=== PATIENT | female | born 1965 | race Caucasian/White ===

== ENCOUNTER 2016-12-10 12:40 | Inpatient (IN) | payer MEDICARE, OTHER ==
[2016-12-10] MEDS ORDERED: 0.9 % SODIUM CHLORIDE 1,000 ML IV SCH (14:00)
[2016-12-10] MEDS ORDERED: 0.9 % SODIUM CHLORIDE 1,000 ML IV ONE ×2 (14:05→16:53)
[2016-12-10 14:16] LABS: BASOPHILS % 0.4 (0.0-1.5); EOSINOPHILS % 1.2 % (0.0-6.8); MEAN CORPUSCULAR HEMOGLOBIN 25.1 pg (28.0-34.0); MEAN CORPUSCULAR VOLUME 84.4 fl (80.0-100.0); MONOCYTES % 3.5 % (0.0-11.0)
[2016-12-10 14:21] LABS: eGFR (African) > 60; eGFR (Non-African) 42
[2016-12-10 14:34] LABS: APPEARANCE,URINE Cloudy (CLEAR); COLOR,URINE Red (YELLOW); OCCULT BLOOD,URINE 3+ (NEGATIVE); PH URINE 7.5 (5.0 - 8.0); UROBILINOGEN URINE 0.2 Eu (0.2-1.0)
[2016-12-10 14:39] LABS: AMORPHOUS SEDIMENT,UR MANY (NEGATIVE)
[2016-12-10] MEDS ORDERED: ACETAMINOPHEN 1,000 MG/100 ML INJ IV PRN ×2 (17:35→17:39)
[2016-12-10] MEDS ORDERED: ACETAMINOPHEN 1,000 MG/100 ML INJ IV ONE (17:35)
[2016-12-10] MEDS ORDERED: DANTROLENE SODIUM 50 MG PO SCH (17:35)
[2016-12-10] MEDS ORDERED: cefTRIAXone SODIUM ADVANTAGE 1 GM VIAL.PORT IV ONE (17:49)
[2016-12-10] MEDS ORDERED: CYCLOBENZAPRINE HCL 5 MG TABLET PO PRN (17:52)
--- NOTE | 2016-12-10 17:58 | History and Physical Report ---
History of Present Illnes - History of Present Illness Reason for Visit: change in mental status, UTI History of Present Illness: 51yo white female who recently was seen and treated for UTI with Bactrim. Culture showed Proteus mirabilis and it was sensitive to Bactrim. Patient has just finished the course of antibiotics about one week ago. Since that time patient has been running a fever, having some occasional chills. appetite has been diminished and she has been coughing more with oral intake. Patient does have a history of aspiration. Patient has become more lethargic and was brought tot he ED. On evaluation patient was found to have a UTI with leukocytosis with possible early sepsis. CT scan show hydronephrosis bilaterally with no obstructing lesion. Calcium level is elevated. BUN and creatinine is elevated and patient is felt to be significantly dehydrated. Patient admitted for further evaluation and treatment. - Past Medical History Pulmonary: Other (recurrent aspiration pneumonia,) G[employer]ING [employer]NER: Other (microencephaly, Severe MR, ) Musculoskeletal: Other (scoliosis) Dermatology: Other (Acne) Grav: 0 Para: 0 - Past Surgical History Past Surgical History: None - Past Social History Smoke: No Occupation: disabled Alcohol: None Drugs: None Lives: Other ([facility]) - Health Maintenance Health Maintenance: Tetanus, Influenza Vaccine, Pneumococcal Vaccine. denies: Pap Smear, Mammogram, Colonoscopy Influenza Vaccine: Current for this Influenza Season Pneumonia Vaccine: Yes Resuscitation Status: Resusciation Status Resuscitation Status Full Code - Unable to Obtain History Unable to Obtain: Yes Review of Systems - Review of Systems Constitutional: Fever. negative: Chills, Sweats Eyes: other (unknown) ENT: negative: Nose Discharge, Nose Congestion, Mouth Pain, Mouth Swelling Respiratory: Cough, Dry. negative: Shortness of Breath, Hemoptysis, SOB with Excertion, Pleuritic Pain Cardiovascular: negative: Chest Pain, Paroxysmal Noc. Dyspnea, Edema, Light Headedness Gastrointestinal: Constipation. negative: Nausea, Vomiting, Abdominal Pain, Diarrhea, Melena, Hematochezia Genitourinary: Frequency, Incontinence. negative: Hematuria, Retention Musculoskeletal: negative: Back Pain Skin: negative: Rash Neurological: Confusion (more lethargic then baseline). negative: Weakness, Numbness - Medications/Allergies Allergies/Adverse Reactions: Allergies Allergy/AdvReac Type Severity Reaction Status Date / Time ciprofloxacin [From Cipro] Allergy Verified 12/10/16 15:42 ciprofloxacin HCl Allergy Verified 12/10/16 15:42 [From Cipro] Home Medications: Home Medications Ascorbic Acid [Ascorbic Acid] 500 mg PO DAILY 12/10/16 Dantrolene Sodium [Dantrolene Sodium] 50 mg PO QID 12/10/16 Current Inpatient Medications: Current Inpatient Medications Acetaminophen (Ofirmev) 1,000 mg IV Q6H PRN PRN Reason: PAIN Acetaminophen (Ofirmev) 1,000 mg IV NOW ONE Stop: 12/10/16 17:36 Acetaminophen (Ofirmev) 1,000 mg IV Q6H PRN PRN Reason: PAIN Baclofen (Lioresal) 10 mg PO TID [facility] Bisacodyl (Dulcolax) 5 mg PO QOD [facility] Calcium/Vitamin D (Caltrate With Vit D) 1 each PO DAILY [facility] Cyclobenzaprine HCl (Flexeril) 5 mg PO TID PRN PRN Reason: muscle spasms Enoxaparin Sodium (Lovenox) 30 mg SQ QD [facility] Stop: 12/23/16 18:01 Sodium Chloride (Normal Saline) 1,000 mls @ 125 mls/hr IV Q8 [facility] Ceftriaxone Sodium 1 gm/ (Sodium Chloride) 50 mls @ 100 mls/hr IV QD [facility] Multivitamins (Tab-A-Oralia) 1 each PO DAILY [facility] Paroxetine HCl (Paxil) 40 mg PO DAILY [facility] Quetiapine Fumarate (Seroquel) 25 mg PO BID [facility] Exam - Exam General: Alert (Eyes are open and patient does respond some to simple commands) , Cooperative, Mild distress. No: Oriented to Person, Oriented to Place, Oriented to Time HEENT: PERRLA, Poor Dentition. No: Mouth Mucous membr. moist/[place] (dry), Pharyngeal Erythema Neck: Normal Range of Motion. No: Stridor, Rigidity, Lymphadenopathy Carotids: WNL Thyroid: WNL Lungs: Rhonchi (few course scattered rhonchi) Cardiovascular: Regular rate, Normal S1, Normal S2, No murmurs. No: Gallops, Rubs Abdomen: Normal bowel sounds, Soft, No tenderness, No hepatospenomegaly, No masses. No: Distended Integumentary: Normal, [place], Warm, Dry Extremities: No clubbing, No cyanosis, No edema, Normal pulses Neurological: Strength Equal Bilat, Sensation intact, Cranial nerves 3-12 NL. No: Normal tone (incresed but at baseline) Psych/Mental Status: No: Mental status NL (lethargic), Appropriate Affect (at baseline), Intact Judgment Assessment/Plan - Assessment/Plan (1) UTI (urinary tract infection) Status: Acute Current Visit: Yes (2) Sepsis Status: Acute Current Visit: Yes (3) Hypercalcemia Status: Acute Current Visit: Yes (4) Mental retardation Status: Acute Current Visit: Yes (5) MICROENCEPHALY Status: Acute Current Visit: Yes (6) Aspiration into airway Status: Acute Current Visit: Yes (7) Chronic constipation Status: Acute Current Visit: Yes VTE Assessment - RISK FACTOR SCORE VTE RISK FACTOR SCORES: AGE 40-60 YEARS, ACUTE INFECTION OTHER THEN SEPSIS, ANTICIPATED BED CONFINEMENT OR IMMOBILIZATION > 24 HOURS - RISK VTE HIGH RISK: SCORE OF 3-4 (RISK PROXIMAL DVT 4-8%) PROPHYLAXIS NEEDED
[2016-12-10] MEDS: 0.9 % SODIUM CHLORIDE 1,000 ML IV SCH ×2 (18:17→22:02)
[2016-12-10] MEDS: MULTIVITAMIN 1 EACH TABLET PO SCH (18:18)
[2016-12-10] MEDS: BISACODYL 5 MG TABLET.DR PO SCH (18:18)
[2016-12-10] MEDS: CALCIUM CARB 500/VIT D 200 1 EACH TABLET PO SCH (18:18)
[2016-12-10] MEDS: cefTRIAXone SODIUM ADVANTAGE 1 GM in NORMAL SALINE ADD-VANTAGE 50 ML IV SCH (18:20)
[2016-12-10 18:24] VITALS: BMI 18.1
[2016-12-10] MEDS: BACLOFEN 10 MG TABLET PO SCH (18:31)
[2016-12-10] MEDS: ENOXAPARIN SODIUM 30 MG/0.3 ML DISP.SYRIN SQ SCH (18:38)
[2016-12-10] MEDS: QUEtiapine FUMARATE 25 MG TABLET PO SCH (20:30)
--- NOTE | 2016-12-11 00:30 | Diagnostic Imaging Report ---
[facility] [address] [facility] [address] [place], [place]. [address] ~ ~ ~ ~ Report Submission Date: Dec 10, 2016 3:26:50 PM SKIN PILER Patient ~ Study Name: GERMÁN TURPIN ~ Date: Dec 10, 2016 2:50:19 PM SKIN PILER ~ Modality Type: CT\SR Gender: F ~ Description: CT ABD & PELVIS W/O CO : 63 ~ Institution: [facility] Physician: WALTER WALDRON ~ ~ ~ ~ HISTORY: ~ 51 year-old female with abdominal pain and decreased level of consciousness. COMPARISON: None available. TECHNIQUE: Helical CT images of the abdomen and pelvis were performed without contrast. ~Sagittal and coronal reformatted images were obtained. FINDINGS: CT abdomen: The lung bases are essentially clear. ~There is thoracolumbar S- shaped scoliosis with Cedeno melo fixation The noncontrast liver, spleen, pancreas, gallbladder, and adrenal glands are unremarkable. ~There is bilateral hydronephrosis, greater on the right. ~There are multiple mildly prominent lymph nodes in the central mesentery, likely incidental. ~No abdominal aortic aneurysm. CT pelvis: ~No abnormal bowel dilatation, free air, free fluid, or suspicious adenopathy. There is fecal retention in the colon. ~Evaluation of the bowel is limited by lack of contrast and paucity of intra-abdominal fat. ~Rondon catheter and multiple calculi are identified in the urinary bladder. ~There is increased density of the fluid in the urinary bladder suggestive of some hemorrhage. ~The appendix is normal in appearance. ~There is moderate right hip osteoarthritis. 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 ~There is severe degenerative changes of the lumbar spine, SI joints, and left hip. IMPRESSION: 1. ~Moderate to severe right and moderate left hydronephrosis and hydroureter without evidence of obstructing calculi; however, there are multiple calculi within the urinary bladder lumen. ~Additionally, there is suggestion of blood products within the urinary bladder lumen. ~It is uncertain if this degree of urinary tract obstruction is acute or chronic. 2. ~Thoracolumbar S-shaped scoliosis and postoperative changes of Cedeno melo fixation. 3. ~Chronically dislocated left hip degenerative changes throughout the spine, sacroiliac joints, and hips. 4. ~Fecal retention in the colon suggestive of constipation. ~This is not associated with bowel obstruction. ~ Electronically signed on Dec 10, 2016 3:26:50 PM SKIN PILER by: Collin JEONG
--- NOTE | 2016-12-11 00:31 | Diagnostic Imaging Report ---
[facility] [place] [facility] [address] [facility].[address] [address] ~ ~ ~ ~ Report Submission Date: Dec 10, 2016 3:18:16 PM ASPHALT COATER Patient ~ Study Name: GERMÁN TURPIN ~ Date: Dec 10, 2016 3:00:12 PM ASPHALT COATER ~ Modality Type: CR Gender: F ~ Description: CHEST : 63 ~ Institution: [facility] [place] [facility] Physician: WALTER WALDRON ~ ~ ~ ~ HISTORY: ~ 51 year-old female with decreased level of consciousness. COMPARISON: None available. TECHNIQUE: Single portable AP view of the chest was performed. FINDINGS: No pneumothorax, consolidative infiltrates, or pulmonary edema. ~The heart is not enlarged. There are postoperative changes of Cedeno melo fixation of the thoracolumbar spine. ~There is thoracic levoscoliosis and thoracolumbar dextroscoliosis. IMPRESSION: No acute cardiopulmonary process identified. ~ Electronically signed on Dec 10, 2016 3:18:16 PM ASPHALT COATER by: Collin JEONG
[2016-12-11] MEDS ORDERED: 0.9 % SODIUM CHLORIDE 1,000 ML IV ONE (00:57)
--- NOTE | 2016-12-11 02:47 | ED Physician Documentation ---
General Adult - HISTORIAN Historian: patient - HPI Stated Complaint: not acting self, weight loss, decrease in appetite Chief Complaint: General Adult Additional Information: wt loss 12-20 lbs over last month Onset: days ago (40) Timing: still present Severity: severe Modifying Factors: uti tx recently Further Comments: no Last known Well Date: 10/27/16 Last Known Well Time: 00:00 - ROS CONST: weakness, weight loss EYES/ENT: none CVS/RESP: none GI/: abdominal pain (pelvic) MS/SKIN/LYMPH: none NEURO/PSYCH: difficulty with speech - PAST HX Past History: other (uti, depression) Other History: none Surgeries/Procedures: none Immunizations: referred to PCP Allergies/Adverse Reactions: Allergies Allergy/AdvReac Type Severity Reaction Status Date / Time ciprofloxacin [From Cipro] Allergy Verified 12/10/16 15:42 ciprofloxacin HCl Allergy Verified 12/10/16 15:42 [From Cipro] Home Medications: Ambulatory Orders Medication Instructions Recorded Ascorbic Acid [Ascorbic Acid] 500 mg PO DAILY 12/10/16 Dantrolene Sodium [Dantrolene 50 mg PO QID 12/10/16 Sodium] - SOCIAL HX Smoking History: non-smoker Alcohol Use: none Drug Use: none - FAMILY HX Family History: No - VITAL SIGNS Vital Signs: Vital Signs Temp Pulse Resp BP Pulse Ox 98 F 93 H 20 104/72 95 12/10/16 22:00 12/11/16 00:00 12/10/16 22:00 12/10/16 22:00 12/11/16 01:00 - REVIEWED ASSESSMENTS Nursing Assessment Reviewed: Yes Vitals Reviewed: Yes Progress - Results/Orders Results/Orders: ct abdomen/pelvis, cxr, cmp, cbc, ua, amylase, cultures ordered - Progress Progress: Rondon placed in er, pt. stable Critical Care Note - Critical Care Note Total Time (mins): 0 ED Results Lab/Radiology - Lab Results Lab Results: Lab Results 12/10/16 12/10/16 12/10/16 14:30 14:00 14:00 WBC 16.60 K/ul H K/ul (4.00-12.00) RBC 4.90 M/ul M/ul (3.90-5.20) Hgb 12.3 g/dL g/dL (12.0-16.0) Hct 41.4 % % (34.5-46.5) MCV 84.4 fl fl (80.0-100.0) MCH 25.1 pg L pg (28.0-34.0) MCHC 29.8 g/dL L g/dL (30.0-36.0) RDW 14.4 % H % (11.3-14.3) Plt Count 305 K/mm3 K/mm3 (130-400) Neut % (Auto) 84.4 % H % (39.0-79.0) Lymph % (Auto) 9.5 % L % (16.0-50.0) [place] % (Auto) 3.5 % % (0.0-11.0) Eos % (Auto) 1.2 % % (0.0-6.8) Baso % (Auto) 0.4 (0.0-1.5) Neut # 14.0 # k/uL H # k/uL (1.4-7.7) Lymph # 1.6 # k/uL # k/uL (0.6-4.0) [place] # 0.6 # k/uL # k/uL (0.0-0.9) Eos # 0.2 # k/uL # k/uL (0.0-0.6) Baso # 0.1 # k/uL # k/uL (0.0-0.5) Reactive Lymphs % 1.0 % % (0.0-5.0) Reactive Lymphs # 0.2 # k/uL # k/uL (0.0-0.8) Sodium 141 mmol/L mmol/L (136-145) Potassium 4.5 mmol/L mmol/L (3.5-5.0) Chloride 101 mmol/L mmol/L (98-110) Carbon Dioxide 38 mmol/L H mmol/L (20-32) BUN 27 mg/dL H mg/dL (10-26) Creatinine 1.4 mg/dL mg/dL (0.4-1.5) Est GFR ( Amer) > 60 (60 - ) Est GFR (Non-Af Amer) 42 L (60 - ) Glucose 101 mg/dL H mg/dL (70-99) Calcium 14.3 mg/dL H* mg/dL (8.5-10.5) Total Bilirubin 0.3 mg/dL mg/dL (0.2-1.2) AST 21 U/L U/L (0-41) ALT 13 U/L U/L (0-45) Alkaline Phosphatase 137 U/L H U/L (46-116) Total Protein 6.7 g/dL g/dL (6.0-8.5) Albumin 4.0 g/dL g/dL (3.0-5.5) Amylase 56 U/L U/L (20-104) Urine Color Red (YELLOW) Urine Appearance Cloudy (CLEAR) Urine pH 7.5 (5.0 - 8.0) Ur Specific [place] 1.015 (1.010-1.030) Urine Protein 3+ mg/dL H mg/dL (NEGATIVE) Urine Ketones Negative mg/dL mg/dL (NEGATIVE) Urine Occult Blood 3+ H (NEGATIVE) Urine Nitrite Negative (NEGATIVE) Urine Bilirubin 1+ H (NEGATIVE) Urine Urobilinogen 0.2 Eu Eu (0.2-1.0) Ur Leukocyte Esterase 1+ H (NEGATIVE) Urine RBC 50-99 H (0-2 HPF) Urine WBC 25-50 H (0-5 HPF) Ur Squamous Epith Cells Moderate H (NEG-FEW) Amorphous Sediment Many H (NEGATIVE) Urine Bacteria Many H (NEGATIVE) Urine Glucose Negative mg/dL mg/dL (NEGATIVE) - Radiology Radiology Impressions: ct abdomen/pelvis shows hydronephrosis bilat., Dr. Zurita made aware, cxr neg - Orders Orders: ED Orders Category Date Time Status Activity as ordered D Care 12/10/16 17:35 Active Assess pulse oximetry Q4H Care 12/10/16 17:35 Active Continue Rondon Catheter on Adm NOW Care 12/10/16 17:35 Active Continuous EKG monitoring Q2 Care 12/10/16 17:35 Active Document Bowel Movement Q8H Care 12/10/16 17:[address] Zurita NOW Care 12/10/16 17:35 Ordered Rondon [Urinary catheterization] 1T Care 12/10/16 15:46 Completed Inpatient (Anticipate > 2 Midnight Stay) NOW Care 12/10/16 17:35 Ordered No VTE Prophylaxis Needed .Once Care 12/10/16 17:[address] Saline Lock/IV Now Care 12/10/16 13:58 Completed Vital Signs Q4 Care 12/10/16 17:35 Active Regular Diet 12/10/16 Dinner Ordered Regular Diet 12/10/16 Dinner Ordered CHEST 1 VIEW [RAD] Routine Exams 12/10/[address] ABD & PELVIS W/O CON Stat Exams 12/10/16 Completed AMYLASE Routine Lab 12/10/16 14:00 Completed BLOOD CULTURE Routine Lab 12/10/16 14:00 Ordered CBC/PLATELET/DIFF Routine Lab 12/10/16 14:00 Completed CBC/PLATELET/DIFF Routine Lab 12/11/16 06:00 Ordered CMP Routine Lab 12/10/16 14:00 Completed CMP Routine Lab 12/11/16 06:00 Ordered URINALYSIS Routine Lab 12/10/16 14:30 Completed URINE CULTURE Routine Lab 12/10/16 14:30 Received 0.9 % Sodium Chloride [Normal Saline] 1,000 ml Med 12/10/16 14:00 Discontinued IV .Q1H 0.9 % Sodium Chloride [Normal Saline] 1,000 ml Med 12/10/16 17:35 Ordered IV Q8 Acetaminophen [Ofirmev] Med 12/10/16 17:35 Once 1,000 mg IV NOW ONE Acetaminophen [Ofirmev] Med 12/10/16 17:35 Ordered 1,000 mg IV Q6H PRN Baclofen [Lioresal] Med 12/10/16 18:00 Ordered 10 mg PO TID Bisacodyl [Dulcolax] Med 12/10/16 17:35 Ordered 5 mg PO QOD Calcium Carb 500/Vit D 200 [Caltrate with Vit D] Med 12/10/16 17:35 Ordered 1 each PO DAILY Dantrolene Sodium [Dantrolene Sodium] Med 12/10/16 17:35 Discontinued 50 mg PO QID Multivitamin [Tab-A-Oralia] Med 12/10/16 17:35 Ordered 1 each PO DAILY PARoxetine HCL [Paxil] Med 12/11/16 09:00 Ordered 40 mg PO DAILY QUEtiapine FUMARATE [Seroquel] Med 12/10/16 21:00 Ordered 25 mg PO BID cefTRIAXone SODIUM ADVANTAGE [Rocephin Advantage] 1 gm Med 12/10/16 17:35 Ordered Normal Saline Add-Warren [Sodium Chloride] 50 ml IV QD Resuscitation Status Routine Oth 12/10/16 17:35 Ordered Transfer Routine Transfer 12/10/16 Completed General Adult Physical Exam - PHYSICAL EXAM GENERAL APPEARANCE: moderate distress EENT: eye inspection normal, ENT inspection normal, other (dry mm's) NECK: normal inspection, thyroid normal, supple RESPIRATORY: no resp distress, chest non-tender, breath sounds normal CVS: reg rate & rhythm, heart sounds normal ABDOMEN: soft, no organomegaly, normal bowel sounds, tenderness (suprapubic area ) BACK: normal inspection, no CVA tenderness SKIN: other (positive tenting) EXTREMITIES: non-tender, normal range of motion, no evidence of injury, no edema NEURO: depressed mood/affect, other (weakness) Discharge Clincal Impression: Sepsis secondary to UTI Home Medications: Ambulatory Orders Ascorbic Acid [Ascorbic Acid] 500 mg PO DAILY 12/10/16 Dantrolene Sodium [Dantrolene Sodium] 50 mg PO QID 12/10/16 Comments: admitted after discussion with Dr. Zurita Condition: Stable Disposition: ADMITTED INPATIENT Decision to Admit: [id number] Decision Time: 17:00
[2016-12-11] MEDS: 0.9 % SODIUM CHLORIDE 1,000 ML IV SCH (05:22)
[2016-12-11] MEDS ORDERED: cefTRIAXone SODIUM 1 GM VIAL ONE (05:48)
[2016-12-11] MEDS ORDERED: SALINE FLUSH 10 ML DISP.SYRIN IVF ONE (05:48)
[2016-12-11] MEDS ORDERED: 0.9 % SODIUM CHLORIDE 50 ML IV ONE (05:48)
[2016-12-11 06:55] LABS: BASOPHILS % 0.2 (0.0-1.5); EOSINOPHILS % 2.4 % (0.0-6.8); MEAN CORPUSCULAR VOLUME 84.8 fl (80.0-100.0); MONOCYTES % 2.9 % (0.0-11.0); NEUTROPHILS # 10.4 # k/uL (1.4-7.7)
[2016-12-11 07:13] LABS: eGFR (African) > 60; eGFR (Non-African) > 60
[2016-12-11] MEDS: CALCIUM CARB 500/VIT D 200 1 EACH TABLET PO SCH (09:26)
[2016-12-11] MEDS: BACLOFEN 10 MG TABLET PO SCH ×3 (09:27→18:14)
[2016-12-11] MEDS: QUEtiapine FUMARATE 25 MG TABLET PO SCH ×2 (09:28→20:21)
[2016-12-11] MEDS: MULTIVITAMIN 1 EACH TABLET PO SCH (09:28)
[2016-12-11] MEDS: PARoxetine HCL 10 MG TABLET PO SCH (09:28)
--- NOTE | 2016-12-11 09:33 | Inpatient Progress Note ---
Subjective - Required Recertification Statement I anticipate X number of days because-include discharge plan: 1 day - Review of Systems Events since last encounter: patient seems to be doing better today. Patient is more awake and alert then before. Patient continued to have poor oral intake. Pulmonary: Denies: Dyspnea, Cough Gastrointestinal: Denies: Nausea, Vomiting Objective - Exam Vitals and I&O: Vital Signs Temp 97.9 F 12/11/16 05:51 Pulse 101 H 12/11/16 05:51 Resp 20 12/11/16 05:51 BP 83/49 12/11/16 05:51 Pulse Ox 97 12/11/16 05:51 Intake & Output 12/10/16 12/10/16 12/11/16 11:59 23:59 11:59 Intake Total 120 1500 Output Total 400 500 Balance -280 1000 Weight 42.184 kg Intake: IV 1500 Left Antecubital 1500 Oral 120 Output: Urine 400 500 Other: Voiding Method Indwelling Catheter # Bowel Movements 1 General: Alert, Cooperative. No: Oriented to Person, Oriented to Place, Oriented to Time Neck: Supple Lungs: Clear to auscultation, Normal air movement, Speaks full Sentences, Rhonchi (few on the left). No: Wheezes, Rales Cardiovascular: Regular rate, Normal S1, Normal S2, No murmurs Abdomen: Normal bowel sounds, Soft, No tenderness, No hepatospenomegaly, No masses Skin: Normal, [employer], Warm, Dry Psych/Mental Status: No: Mood NL, Appropriate Affect, Intact Judgment - Results Results: Laboratory Results WBC 12.60 K/ul (4.00-12.00) H 12/11/16 06:45 RBC 4.18 M/ul (3.90-5.20) 12/11/16 06:45 Hgb 10.4 g/dL (12.0-16.0) L 12/11/16 06:45 Hct 35.4 % (34.5-46.5) 12/11/16 06:45 MCV 84.8 fl (80.0-100.0) 12/11/16 06:45 MCH 25.0 pg (28.0-34.0) L 12/11/16 06:45 MCHC 29.4 g/dL (30.0-36.0) L 12/11/16 06:45 RDW 14.8 % (11.3-14.3) H 12/11/16 06:45 Plt Count 244 K/mm3 (130-400) 12/11/16 06:45 Neut % (Auto) 82.8 % (39.0-79.0) H 12/11/16 06:45 Lymph % (Auto) 11.1 % (16.0-50.0) L 12/11/16 06:45 [place] % (Auto) 2.9 % (0.0-11.0) 12/11/16 06:45 Eos % (Auto) 2.4 % (0.0-6.8) 12/11/16 06:45 Baso % (Auto) 0.2 (0.0-1.5) 12/11/16 06:45 Neut # 10.4 # k/uL (1.4-7.7) H 12/11/16 06:45 Lymph # 1.4 # k/uL (0.6-4.0) 12/11/16 06:45 [place] # 0.4 # k/uL (0.0-0.9) 12/11/16 06:45 Eos # 0.3 # k/uL (0.0-0.6) 12/11/16 06:45 Baso # 0.0 # k/uL (0.0-0.5) 12/11/16 06:45 Reactive Lymphs % 0.6 % (0.0-5.0) 12/11/16 06:45 Reactive Lymphs # 0.1 # k/uL (0.0-0.8) 12/11/16 06:45 Sodium 144 mmol/L (136-145) 12/11/16 06:45 Potassium 3.6 mmol/L (3.5-5.0) 12/11/16 06:45 Chloride 110 mmol/L (98-110) 12/11/16 06:45 Carbon Dioxide 29 mmol/L (20-32) 12/11/16 06:45 BUN 23 mg/dL (10-26) 12/11/16 06:45 Creatinine 1.1 mg/dL (0.4-1.5) 12/11/16 06:45 Estimated Creat Clear 46 12/11/16 06:45 Est GFR ( Amer) > 60 (60-) 12/11/16 06:45 Est GFR (Non-Af Amer) > 60 (60-) 12/11/16 06:45 Glucose 95 mg/dL (70-99) 12/11/16 06:45 Calcium 12.0 mg/dL (8.5-10.5) H 12/11/16 06:45 Total Bilirubin 0.2 mg/dL (0.2-1.2) 12/11/16 06:45 AST 20 U/L (0-41) 12/11/16 06:45 ALT 10 U/L (0-45) 12/11/16 06:45 Alkaline Phosphatase 111 U/L (46-116) 12/11/16 06:45 Total Protein 4.9 g/dL (6.0-8.5) L 12/11/16 06:45 Albumin 2.9 g/dL (3.0-5.5) L 12/11/16 06:45 Amylase 56 U/L (20-104) 12/10/16 14:00 Urine Color Red (YELLOW) 12/10/16 14:30 Urine Appearance Cloudy (CLEAR) 12/10/16 14:30 Urine pH 7.5 (5.0 - 8.0) 12/10/16 14:30 Ur Specific [place] 1.015 (1.010-1.030) 12/10/16 14:30 Urine Protein 3+ mg/dL (NEGATIVE) H 12/10/16 14:30 Urine Ketones Negative mg/dL (NEGATIVE) 12/10/16 14:30 Urine Occult Blood 3+ (NEGATIVE) H 12/10/16 14:30 Urine Nitrite Negative (NEGATIVE) 12/10/16 14:30 Urine Bilirubin 1+ (NEGATIVE) H 12/10/16 14:30 Urine Urobilinogen 0.2 Eu (0.2-1.0) 12/10/16 14:30 Ur Leukocyte Esterase 1+ (NEGATIVE) H 12/10/16 14:30 Urine RBC 50-99 (0-2 HPF) H 12/10/16 14:30 Urine WBC 25-50 (0-5 HPF) H 12/10/16 14:30 Ur Squamous Epith Cells Moderate (NEG-FEW) H 12/10/16 14:30 Amorphous Sediment Many (NEGATIVE) H 12/10/16 14:30 Urine Bacteria Many (NEGATIVE) H 12/10/16 14:30 Urine Glucose Negative mg/dL (NEGATIVE) 12/10/16 14:30 Assessment/Plan - Assessment/Plan (1) UTI (urinary tract infection) Status: Acute Current Visit: Yes Assessment: Patient's WBC is improved. patient has been afebrile over the last 12 hours. (2) Sepsis Status: Acute Current Visit: Yes Assessment: blood pressure has been stable. Other vital signs have stated has been stable. (3) Hypercalcemia Status: Acute Current Visit: Yes Assessment: improved (4) Mental retardation Status: Acute Current Visit: Yes (5) Aspiration into airway Status: Acute Current Visit: Yes (6) Chronic constipation Status: Acute Current Visit: Yes Assessment: will monitor
[2016-12-11] MEDS: cefTRIAXone SODIUM ADVANTAGE 1 GM in NORMAL SALINE ADD-VANTAGE 50 ML IV SCH (17:36)
[2016-12-11] MEDS: ENOXAPARIN SODIUM 30 MG/0.3 ML DISP.SYRIN SQ SCH (18:14)
[2016-12-12] MEDS ORDERED: 0.9 % SODIUM CHLORIDE 1,000 ML IV ONE (02:34)
[2016-12-12 07:06] LABS: BASOPHILS % 0.2 (0.0-1.5); EOSINOPHILS % 1.6 % (0.0-6.8); MEAN CORPUSCULAR HEMOGLOBIN 25.1 pg (28.0-34.0); MEAN CORPUSCULAR VOLUME 85.9 fl (80.0-100.0); MONOCYTES % 2.7 % (0.0-11.0); NEUTROPHILS # 9.6 # k/uL (1.4-7.7)
[2016-12-12 07:20] LABS: eGFR (African) > 60; eGFR (Non-African) > 60
--- NOTE | 2016-12-12 08:40 | Inpatient Progress Note ---
Subjective - Required Recertification Statement I anticipate X number of days because-include discharge plan: 3 - Review of Systems Events since last encounter: Patient appeared to be more mentally awake and alert at this time. Patient does not voice any complaints. General: Denies: Chills, Fatigue Cardiovascular: Denies: Chest Pain, Palpitations Gastrointestinal: Denies: Nausea, Vomiting Objective - Exam Vitals and I&O: Vital Signs Temp 97.8 F 12/12/16 06:00 Pulse 101 H 12/12/16 06:00 Resp 20 12/12/16 06:00 BP 129/94 12/12/16 06:00 Pulse Ox 96 12/12/16 06:00 Intake & Output 12/11/16 12/11/16 12/12/16 11:59 23:59 11:59 Intake Total 1500 120 Output Total 500 Balance 1000 120 Intake: IV 1500 Left Antecubital 1500 Oral 120 Output: Urine 500 Other: Voiding Method Indwelling Catheter Diaper # Voids 1 General: Alert, Oriented to Person Neck: Supple, No JVD Lungs: Clear to auscultation, Normal air movement. No: Respiratory Distress, Wheezes, Rales, Rhonchi Cardiovascular: Regular rate, Normal S1, Normal S2 Abdomen: Normal bowel sounds, Soft, No tenderness Extremities: No clubbing, No cyanosis, No edema Skin: Normal, [place], Warm - Results Results: Laboratory Results WBC 11.60 K/ul (4.00-12.00) 12/12/16 06:50 RBC 4.23 M/ul (3.90-5.20) 12/12/16 06:50 Hgb 10.6 g/dL (12.0-16.0) L 12/12/16 06:50 Hct 36.4 % (34.5-46.5) 12/12/16 06:50 MCV 85.9 fl (80.0-100.0) 12/12/16 06:50 MCH 25.1 pg (28.0-34.0) L 12/12/16 06:50 MCHC 29.2 g/dL (30.0-36.0) L 12/12/16 06:50 RDW 15.2 % (11.3-14.3) H 12/12/16 06:50 Plt Count 267 K/mm3 (130-400) 12/12/16 06:50 Neut % (Auto) 83.1 % (39.0-79.0) H 12/12/16 06:50 Lymph % (Auto) 11.2 % (16.0-50.0) L 12/12/16 06:50 [place] % (Auto) 2.7 % (0.0-11.0) 12/12/16 06:50 Eos % (Auto) 1.6 % (0.0-6.8) 12/12/16 06:50 Baso % (Auto) 0.2 (0.0-1.5) 12/12/16 06:50 Neut # 9.6 # k/uL (1.4-7.7) H 12/12/16 06:50 Lymph # 1.3 # k/uL (0.6-4.0) 12/12/16 06:50 [place] # 0.3 # k/uL (0.0-0.9) 12/12/16 06:50 Eos # 0.2 # k/uL (0.0-0.6) 12/12/16 06:50 Baso # 0.0 # k/uL (0.0-0.5) 12/12/16 06:50 Reactive Lymphs % 1.2 % (0.0-5.0) 12/12/16 06:50 Reactive Lymphs # 0.1 # k/uL (0.0-0.8) 12/12/16 06:50 Sodium 151 mmol/L (136-145) H 12/12/16 06:50 Potassium 3.1 mmol/L (3.5-5.0) L 12/12/16 06:50 Chloride 122 mmol/L (98-110) H 12/12/16 06:50 Carbon Dioxide 27 mmol/L (20-32) 12/12/16 06:50 BUN 16 mg/dL (10-26) 12/12/16 06:50 Creatinine 1.0 mg/dL (0.4-1.5) 12/12/16 06:50 Estimated Creat Clear 51 12/12/16 06:50 Est GFR ( Amer) > 60 (60-) 12/12/16 06:50 Est GFR (Non-Af Amer) > 60 (60-) 12/12/16 06:50 Glucose 97 mg/dL (70-99) 12/12/16 06:50 Calcium 12.0 mg/dL (8.5-10.5) H 12/12/16 06:50 Total Bilirubin 0.2 mg/dL (0.2-1.2) 12/11/16 06:45 AST 20 U/L (0-41) 12/11/16 06:45 ALT 10 U/L (0-45) 12/11/16 06:45 Alkaline Phosphatase 111 U/L (46-116) 12/11/16 06:45 Total Protein 4.9 g/dL (6.0-8.5) L 12/11/16 06:45 Albumin 2.9 g/dL (3.0-5.5) L 12/11/16 06:45 Amylase 56 U/L (20-104) 12/10/16 14:00 Urine Color Red (YELLOW) 12/10/16 14:30 Urine Appearance Cloudy (CLEAR) 12/10/16 14:30 Urine pH 7.5 (5.0 - 8.0) 12/10/16 14:30 Ur Specific [place] 1.015 (1.010-1.030) 12/10/16 14:30 Urine Protein 3+ mg/dL (NEGATIVE) H 12/10/16 14:30 Urine Ketones Negative mg/dL (NEGATIVE) 12/10/16 14:30 Urine Occult Blood 3+ (NEGATIVE) H 12/10/16 14:30 Urine Nitrite Negative (NEGATIVE) 12/10/16 14:30 Urine Bilirubin 1+ (NEGATIVE) H 12/10/16 14:30 Urine Urobilinogen 0.2 Eu (0.2-1.0) 12/10/16 14:30 Ur Leukocyte Esterase 1+ (NEGATIVE) H 12/10/16 14:30 Urine RBC 50-99 (0-2 HPF) H 12/10/16 14:30 Urine WBC 25-50 (0-5 HPF) H 12/10/16 14:30 Ur Squamous Epith Cells Moderate (NEG-FEW) H 12/10/16 14:30 Amorphous Sediment Many (NEGATIVE) H 12/10/16 14:30 Urine Bacteria Many (NEGATIVE) H 12/10/16 14:30 Urine Glucose Negative mg/dL (NEGATIVE) 12/10/16 14:30 Assessment/Plan - Assessment/Plan (1) UTI (urinary tract infection) Status: Acute Assessment: Appeared to be improving at this time. We'll go ahead and continue with present medications and treatment. (2) Sepsis Status: Acute Assessment: Improved. Patient WBC count remained stable (3) Hypercalcemia Status: Acute Assessment: Calcium is stable at 12.2 (4) Mental retardation Status: Acute (5) Aspiration into airway Status: Acute (6) Chronic constipation Status: Acute (7) Hypokalemia Status: Acute Assessment: Potassium is improved to 3.4.
[2016-12-12] MEDS ORDERED: DEXTROSE 5 %-0.45 % NACL 1,000 ML IV ONE ×2 (08:47→20:27)
[2016-12-12] MEDS: POTAS CHLOR 20 IN D5-1/2NS 1,000 ML IV SCH ×2 (09:13→20:44)
[2016-12-12] MEDS: BACLOFEN 10 MG TABLET PO SCH ×3 (09:14→18:16)
[2016-12-12] MEDS: MULTIVITAMIN 1 EACH TABLET PO SCH (09:14)
[2016-12-12] MEDS: PARoxetine HCL 10 MG TABLET PO SCH (09:14)
[2016-12-12] MEDS: CALCIUM CARB 500/VIT D 200 1 EACH TABLET PO SCH (09:15)
[2016-12-12] MEDS: QUEtiapine FUMARATE 25 MG TABLET PO SCH ×2 (09:15→20:26)
[2016-12-12] MEDS: BISACODYL 5 MG TABLET.DR PO SCH (12:47)
[2016-12-12] MEDS ORDERED: cefTRIAXone SODIUM 1 GM VIAL ONE (16:01)
[2016-12-12] MEDS ORDERED: SULFAMETHOXAZOLE/TRIMETHOPRIM 1 EACH TABLET PO ONE (16:03)
[2016-12-12] MEDS ORDERED: NORMAL SALINE ADD-VANTAGE 50 ML IV ONE (17:19)
[2016-12-12] MEDS ORDERED: cefTRIAXone SODIUM ADVANTAGE 1 GM VIAL.PORT IV ONE (17:19)
[2016-12-12] MEDS: cefTRIAXone SODIUM ADVANTAGE 1 GM in NORMAL SALINE ADD-VANTAGE 50 ML IV SCH (18:01)
[2016-12-12] MEDS: ENOXAPARIN SODIUM 30 MG/0.3 ML DISP.SYRIN SQ SCH (18:20)
[2016-12-12] MEDS ORDERED: PHARMACY KEY 1 EACH EACH MC ONE (20:27)
[2016-12-12] MEDS ORDERED: SALINE FLUSH 10 ML DISP.SYRIN IVF ONE (20:46)
[2016-12-13] MEDS ORDERED: DEXTROSE 5 %-0.45 % NACL 1,000 ML IV ONE (06:11)
[2016-12-13] MEDS: POTAS CHLOR 20 IN D5-1/2NS 1,000 ML IV SCH ×2 (06:43→16:54)
[2016-12-13 07:41] LABS: eGFR (African) > 60; eGFR (Non-African) > 60
[2016-12-13] MEDS: MULTIVITAMIN 1 EACH TABLET PO SCH (09:07)
[2016-12-13] MEDS: PARoxetine HCL 10 MG TABLET PO SCH (09:07)
[2016-12-13] MEDS: CALCIUM CARB 500/VIT D 200 1 EACH TABLET PO SCH (09:07)
[2016-12-13] MEDS: QUEtiapine FUMARATE 25 MG TABLET PO SCH ×2 (09:07→20:21)
[2016-12-13] MEDS: BACLOFEN 10 MG TABLET PO SCH ×3 (09:16→17:41)
[2016-12-13] MEDS ORDERED: [UNRECOGNIZED DRUG - OTHER] IV SCH (17:35)
[2016-12-13] MEDS: ENOXAPARIN SODIUM 30 MG/0.3 ML DISP.SYRIN SQ SCH (17:41)
[2016-12-13] MEDS: cefTRIAXone SODIUM ADVANTAGE 1 GM in NORMAL SALINE ADD-VANTAGE 50 ML IV SCH (18:16)
[2016-12-14] MEDS ORDERED: amLODIPine BESYLATE 5 MG TABLET ONE (01:31)
[2016-12-14] MEDS ORDERED: DEXTROSE 5 %-0.45 % NACL 1,000 ML IV ONE ×2 (03:32→03:35)
[2016-12-14] MEDS: POTAS CHLOR 20 IN D5-1/2NS 1,000 ML IV SCH ×2 (03:43→14:50)
[2016-12-14] MEDS: CALCIUM CARB 500/VIT D 200 1 EACH TABLET PO SCH (10:26)
[2016-12-14] MEDS: MULTIVITAMIN 1 EACH TABLET PO SCH (10:26)
[2016-12-14] MEDS: QUEtiapine FUMARATE 25 MG TABLET PO SCH (10:27)
[2016-12-14] MEDS: BACLOFEN 10 MG TABLET PO SCH ×2 (10:27→13:46)
[2016-12-14] MEDS: PARoxetine HCL 10 MG TABLET PO SCH (10:28)
[2016-12-14] MEDS: BISACODYL 5 MG TABLET.DR PO SCH (13:46)
[2016-12-14 14:23] VITALS: BP 132/90
[2016-12-14] MEDS ORDERED: cefTRIAXone SODIUM ADVANTAGE 1 GM VIAL.PORT IV ONE (14:50)
--- NOTE | 2017-02-22 09:53 | Inpatient Progress Note ---
Subjective - Required Recertification Statement I anticipate X number of days because-include discharge plan: 2 day - Review of Systems Events since last encounter: Patient is dong some better. Is more mentally alert and is eating better today. General: Denies: Chills Gastrointestinal: Denies: Nausea, Vomiting, Abdominal Pain Genitourinary: Incontinence. Denies: Dysuria, Frequency Objective - Exam Vitals and I&O: Vital Signs Temp 99.5 F 12/14/16 14:09 Pulse 105 H 12/14/16 14:09 Resp 22 12/14/16 14:09 BP 132/90 12/14/16 14:09 Pulse Ox 96 12/14/16 14:09 General: Alert, Oriented to Person, Cooperative. No: Oriented to Place, Oriented to Time HEENT: Atraumatic Neck: Supple, No JVD Lungs: Clear to auscultation, Normal air movement. No: Respiratory Distress, Wheezes, Rales, Rhonchi Cardiovascular: Regular rate, Normal S1, Normal S2, Tachycardia (mild tacycardia ) Abdomen: Normal bowel sounds, Soft, No tenderness Psych/Mental Status: No: Mental status NL, Intact Judgment - Results Results: Laboratory Results WBC 11.60 K/ul (4.00-12.00) 12/12/16 06:50 RBC 4.23 M/ul (3.90-5.20) 12/12/16 06:50 Hgb 10.6 g/dL (12.0-16.0) L 12/12/16 06:50 Hct 36.4 % (34.5-46.5) 12/12/16 06:50 MCV 85.9 fl (80.0-100.0) 12/12/16 06:50 MCH 25.1 pg (28.0-34.0) L 12/12/16 06:50 MCHC 29.2 g/dL (30.0-36.0) L 12/12/16 06:50 RDW 15.2 % (11.3-14.3) H 12/12/16 06:50 Plt Count 267 K/mm3 (130-400) 12/12/16 06:50 Neut % (Auto) 83.1 % (39.0-79.0) H 12/12/16 06:50 Lymph % (Auto) 11.2 % (16.0-50.0) L 12/12/16 06:50 [place] % (Auto) 2.7 % (0.0-11.0) 12/12/16 06:50 Eos % (Auto) 1.6 % (0.0-6.8) 12/12/16 06:50 Baso % (Auto) 0.2 (0.0-1.5) 12/12/16 06:50 Neut # 9.6 # k/uL (1.4-7.7) H 12/12/16 06:50 Lymph # 1.3 # k/uL (0.6-4.0) 12/12/16 06:50 [place] # 0.3 # k/uL (0.0-0.9) 12/12/16 06:50 Eos # 0.2 # k/uL (0.0-0.6) 12/12/16 06:50 Baso # 0.0 # k/uL (0.0-0.5) 12/12/16 06:50 Reactive Lymphs % 1.2 % (0.0-5.0) 12/12/16 06:50 Reactive Lymphs # 0.1 # k/uL (0.0-0.8) 12/12/16 06:50 Sodium 146 mmol/L (136-145) H 12/13/16 06:55 Potassium 3.4 mmol/L (3.5-5.0) L 12/13/16 06:55 Chloride 113 mmol/L (98-110) H 12/13/16 06:55 Carbon Dioxide 31 mmol/L (20-32) 12/13/16 06:55 BUN 10 mg/dL (10-26) 12/13/16 06:55 Creatinine 0.9 mg/dL (0.4-1.5) 12/13/16 06:55 Estimated Creat Clear 57 12/13/16 06:55 Est GFR ( Amer) > 60 (60-) 12/13/16 06:55 Est GFR (Non-Af Amer) > 60 (60-) 12/13/16 06:55 Glucose 127 mg/dL (70-99) H 12/13/16 06:55 Calcium 12.2 mg/dL (8.5-10.5) H 12/13/16 06:55 Total Bilirubin 0.2 mg/dL (0.2-1.2) 12/11/16 06:45 AST 20 U/L (0-41) 12/11/16 06:45 ALT 10 U/L (0-45) 12/11/16 06:45 Alkaline Phosphatase 111 U/L (46-116) 12/11/16 06:45 Total Protein 4.9 g/dL (6.0-8.5) L 12/11/16 06:45 Albumin 2.9 g/dL (3.0-5.5) L 12/11/16 06:45 Amylase 56 U/L (20-104) 12/10/16 14:00 Urine Color Red (YELLOW) 12/10/16 14:30 Urine Appearance Cloudy (CLEAR) 12/10/16 14:30 Urine pH 7.5 (5.0 - 8.0) 12/10/16 14:30 Ur Specific [place] 1.015 (1.010-1.030) 12/10/16 14:30 Urine Protein 3+ mg/dL (NEGATIVE) H 12/10/16 14:30 Urine Ketones Negative mg/dL (NEGATIVE) 12/10/16 14:30 Urine Occult Blood 3+ (NEGATIVE) H 12/10/16 14:30 Urine Nitrite Negative (NEGATIVE) 12/10/16 14:30 Urine Bilirubin 1+ (NEGATIVE) H 12/10/16 14:30 Urine Urobilinogen 0.2 Eu (0.2-1.0) 12/10/16 14:30 Ur Leukocyte Esterase 1+ (NEGATIVE) H 12/10/16 14:30 Urine RBC 50-99 (0-2 HPF) H 12/10/16 14:30 Urine WBC 25-50 (0-5 HPF) H 12/10/16 14:30 Ur Squamous Epith Cells Moderate (NEG-FEW) H 12/10/16 14:30 Amorphous Sediment Many (NEGATIVE) H 12/10/16 14:30 Urine Bacteria Many (NEGATIVE) H 12/10/16 14:30 Urine Glucose Negative mg/dL (NEGATIVE) 12/10/16 14:30 Assessment/Plan - Assessment/Plan (1) UTI (urinary tract infection) Status: Acute Qualifiers: Urinary tract infection type: acute cystitis Assessment: Improve,mental status improved, WBC is normal. (2) Sepsis Status: Acute Assessment: Afebrile and appears to be improving. Is more mentally awake. (3) Hypercalcemia Status: Acute Assessment: still elevated some, stable (4) Mental retardation Status: Acute (5) Hypokalemia Status: Acute Assessment: improved, K is 3.4 today
--- NOTE | 2017-02-22 09:54 | Discharge Summary ---
Discharge Summary - Discharge Sumary History of Present Illness: 51yo white female who recently was seen and treated for UTI with Bactrim. Culture showed Proteus mirabilis and it was sensitive to Bactrim. Patient has just finished the course of antibiotics about one week ago. Since that time patient has been running a fever, having some occasional chills. appetite has been diminished and she has been coughing more with oral intake. Patient does have a history of aspiration. Patient has become more lethargic and was brought tot he ED. On evaluation patient was found to have a UTI with leukocytosis with possible early sepsis. CT scan show hydronephrosis bilaterally with no obstructing lesion. Calcium level is elevated. BUN and creatinine is elevated and patient is felt to be significantly dehydrated. Patient admitted for further evaluation and treatment. Condition at Discharge: Stable Home Medications: Ambulatory Orders Medication Instructions Recorded Dantrolene Sodium 50 mg PO QID 12/10/16 Cyclobenzaprine HCl [Flexeril] 5 mg PO TID PRN 12/20/16 Procedures this Visit: None Allergies/Adverse Reactions: Allergies Allergy/AdvReac Type Severity Reaction Status Date / Time No Known Allergies Allergy Verified 12/27/16 08:16
== END 2016-12-14 17:20 | disposition home or self-care (01) | DRG 689 ==
LOC: ED 12:40 → SOUTH 16:57
PROVIDERS: ADMIT Family Medicine; ATTEND Family Medicine
DX: N30.01 Acute cystitis with hematuria (principal); A41.9 Sepsis, unspecified organism; E83.52 Hypercalcemia; F78 Other intellectual disabilities; E87.6 Hypokalemia
CPT/HCPCS: 36415; 71010; 74176; 80048; 80053; 81002; 82150; 85025; 87040; 87088; 87186; 99283; A9270; J0696; J1650; J3480; J7030; 99222; 99232; 99238; J7070; S1016; S5010